=== PATIENT | male | born 1950 | race Caucasian/White ===

== ENCOUNTER → 2024-05-02 | Outpatient (CLI) | payer MEDICARE, SELFPAY ==
--- NOTE | 2024-05-02 16:43 | XR_ITS ---
Examination: Cervical spine 4 views Technique: AP, lateral, swimmer's lateral coned AP odontoid 4 views Exam date and time: May 02, 2023 1713 hrs. Indications: Patient woke up with neck pain one week ago. Findings: Adequate alignment cervical vertebral bodies. No cervical fracture. Intact odontoid. Moderate to advanced degenerative disc disease C4-C5, C5-C6, C6-C7 with significant cervical spondylosis Incidental note significant soft tissue vascular calcification Impression: Moderate to advanced degenerative disc disease C4-C5, C5-C6, C6-C7 Incidental note significant soft tissue carotid vascular calcification, consider correlation with carotid Doppler sonography follow-up
== END | disposition home or self-care (01) ==
PROVIDERS: PCP Family Medicine; Referring Provider Family Medicine; Visit Provider Family Medicine
DX: M50.321 Other cervical disc degeneration at C4-C5 level (principal); I65.29 Occlusion and stenosis of unspecified carotid artery
CPT/HCPCS: 72040

== ENCOUNTER → 2024-06-04 | Outpatient (CLI) | payer MEDICARE, SELFPAY ==
--- NOTE | 2024-06-04 10:30 | XR_ITS ---
Examination: Carotid arterial duplex scan, ultrasound. Date and time of exam: June 04, 2024 10:17 AM INDICATIONS: Dizziness episodes beginning 3 months ago Technique: Multiple sonographic images have been obtained of the carotid arteries and vertebral arteries, B-mode/grayscale imaging and Doppler spectral analysis and color flow Peak systolic and diastolic velocities have been recorded. Systolic diastolic ratios have been calculated. Findings: Right peak systolic velocities: Distal internal carotid artery peak systolic velocity is 0.5 M/sec Proximal internal carotid artery peak systolic velocity is 0.5 M/sec Carotid bifurcation peak systolic velocity is 1.2 M/sec External carotid artery peak systolic velocity is 0.5 M/sec Vertebral artery flow is antegrade. Left peak systolic velocities: Distal internal carotid artery peak systolic velocity is 0.5 M/sec Proximal internal carotid artery peak systolic velocity is 0.4 M/sec Carotid bifurcation peak systolic velocity is 1.4 M/sec External carotid artery peak systolic velocity is 0.7 M/sec Vertebral artery flow is antegrade Doppler waveform analysis demonstrates no spectral broadening Impression: Right internal carotid artery demonstrates 0-10% stenosis. Left internal carotid artery demonstrates 0-10% stenosis. Incidental note 3.8 cm vascular solid nodule left thyroid lobe, recommend dedicated thyroid sonography follow-up
== END | disposition home or self-care (01) ==
LOC: CDIM 09:54
PROVIDERS: Referring Provider Family Medicine; Visit Provider Family Medicine
DX: I70.90 Unspecified atherosclerosis (principal); R42 Dizziness and giddiness; E04.1 Nontoxic single thyroid nodule
CPT/HCPCS: 93880

== ENCOUNTER → 2024-06-19 | Outpatient (CLI) | payer MEDICARE, SELFPAY ==
--- NOTE | 2024-06-19 16:00 | XR_ITS ---
Examination: Thyroid sonography complete TECHNIQUE: Grayscale sonographic images thyroid lobes with color flow analysis Exam date and time: June 19, 2024 1621 hours INDICATIONS: Carotid Doppler sonography study June 04, 2024 3.8 cm vascular solid nodule left thyroid lobe FINDINGS: Right thyroid 5.1 x 2.0 x 1.8 cm Upper pole nodule 5 x 5 mm Midpole cyst 5 mm Left thyroid 5.7 x 3.5 x 2.6 cm Complex vascular nodule lower pole left thyroid 3.6 x 3.2 x 2.7 cm IMPRESSION: Consider ultrasound-guided fine-needle aspiration of complex vascular lower pole left thyroid nodule 3.6 x 3.2 x 2.7 cm
== END | disposition home or self-care (01) ==
LOC: CDIM 15:50
PROVIDERS: Referring Provider Family Medicine; Visit Provider Family Medicine
DX: E04.1 Nontoxic single thyroid nodule (principal)
CPT/HCPCS: 76536

== ENCOUNTER → 2024-06-20 | Outpatient (CLI) | payer MEDICARE, SELFPAY ==
[2024-06-20 08:36] LABS: Basophils # (Auto) 0.1 Thou/mm3 (0.0-0.2); Basophils % (Auto) 1 % (0-2.5); Eosinophils # (Auto) 0.3 Thou/mm3 (0.0-0.5); Eosinophils % (Auto) 5 % (0-10); Hematocrit 44.3 % (41.0-53.0); Hemoglobin 15.1 g/dL (13.5-16.0); Immature Granulocytes % (Auto) 1 % (0-0); Immature Granulocytes Auto 0.03 Thou/mm3 (0.00-0.00); Lymphocytes # (Auto) 1.5 Thou/mm3 (1.0-4.8); Lymphocytes % (Auto) 32 % (10-50); Mean Corpuscular HGB Conc 34.1 g/dl (31.0-37.0); Mean Corpuscular Hemoglobin 30.9 pg (25.0-35.0); Mean Corpuscular Volume 91 fL (80-100); Monocytes # (Auto) 0.6 Thou/mm3 (0.0-0.8); Monocytes % (Auto) 12 % (0-12); Neutrophils # (Auto) 2.3 Thou/mm3 (1.8-7.7); Neutrophils % (Auto) 49 % (37-80); Nucleated Red Blood Cell % 0 /100 WBC (0); Platelet Count 210 Thou/mm3 (140-440); RDW Standard Deviation 44.4 fL (35.1-43.9); Red Blood Count 4.88 Miln/mm3 (4.50-5.90); White Blood Count 4.7 Thou/mm3 (3.8-10.6)
[2024-06-20 08:47] LABS: Glucose Estimated Average 126 mg/dL (80-131)
[2024-06-20 09:02] LABS: T4 (Thyroxine) 6.9 mcg/dL (4.5-10.9)
[2024-06-20 09:03] LABS: Alanine Aminotransferase 24 U/L (10-49); Albumin, Serum 3.9 gm/dL (3.4-4.8); Alkaline Phosphatase 67 U/L (46-116); Anion Gap 8 (7-16); Aspartate Amino Transferase 21 U/L (0-34); BUN/Creatinine Ratio 20 Ratio (12-20); Bilirubin,Total 0.9 mg/dL (0.3-1.2); Blood Urea Nitrogen 18 mg/dL (9-23); Calcium 9.9 mg/dL (8.3-10.6); Carbon Dioxide 27.9 mMol/L (20.0-31.0); Chloride 107 mMol/L (98-107); Creatinine (Component) 0.9 mg/dL (0.6-1.3); Glucose 133 mg/dL (74-106); Osmolality,Calculated 288 (275-295); Potassium 4.6 mMol/L (3.4-5.1); Sodium 143 mMol/L (136-145); Thyroid Stimulating Hormone 1.77 uIU/mL (0.55-4.78); Total Protein 5.9 gm/dL (5.7-8.2); eGFR > 60 See Note
== END | disposition home or self-care (01) ==
LOC: COPL 07:21
PROVIDERS: PCP Family Medicine; Referring Provider Family Medicine; Visit Provider Family Medicine
DX: E04.1 Nontoxic single thyroid nodule (principal)
CPT/HCPCS: 36415; 80053; 83036; 84436; 84443; 85025